=== PATIENT | male | born 1960 | race Caucasian/White ===

== ENCOUNTER → 2018-05-31 | Outpatient (CLI) | payer BC ==
[2014-03-12 04:16] VITALS: BP 163/85
[~2018-05-31] MED LIST: ALLO100T PO; AMLO1TAB95 PO; AMLO5TAB10 PO; ASPI-612 PO; ATOR40TA59 PO; CHOL4POW11 PO; FENO134C PO; GLIM1TAB2 PO; LISI1TAB5 PO; LORA5SOL49 PO; METF10007 PO; TOPI25TA52 PO
--- NOTE | 2018-05-31 16:50 | RAD ---
CT of the abdomen and pelvis without contrast, 05/31/2018: History: Left flank pain Noncontrast scans were obtained utilizing the renal stone protocol. There are single small nonobstructing calculi within both kidneys. There is an additional calcification of the left renal hilum which is arterial. There is minimal bilateral renal cortical scarring. There is no evidence of hydronephrosis. The ureters are of normal caliber. No ureteral calculus is seen. The partially filled urinary bladder is unremarkable. The liver is of lower than normal density in a diffuse pattern compatible with mild hepatic steatosis. Two small subcentimeter low density lesions are seen adjacent to the gallbladder fossa. These are too small to definitively characterize but are probably cysts. The gallbladder is collapsed. No dense gallstones are seen. The pancreas is unremarkable. The spleen is of normal size. There is mild aortic calcific plaquing without evidence of aneurysm. No abdominal or pelvic adenopathy is seen. The bowel loops are not dilated. No free fluid or free air is evident in the abdomen or pelvis. A couple of small sclerotic foci within the L5 and L3 vertebral bodies as well as the right iliac bone are probably bone islands. Blastic metastatic disease is much less likely. IMPRESSION: 1. Single small bilateral nonobstructing intrarenal calculi. 2. No obstructing urinary tract calculus is identified. 3. Hepatic steatosis. PQRS Compliance Statement: One or more of the following individualized dose reduction techniques were utilized for this examination: 1. Automated exposure control 2. Adjustment of the mA and/or kV according to patient size 3. Use of iterative reconstruction technique
== END | disposition home or self-care (01) ==
LOC: CT 15:05
PROVIDERS: ATTEND Nurse Practitioner Gerontology
DX: N20.0 Calculus of kidney (principal)
CPT/HCPCS: 74176

== ENCOUNTER 2018-10-30 17:30 | Inpatient (IN) | payer BC ==
[~2018-10-30] VITALS: Ht 177.8 cm; Wt 100.9 kg
[~2018-10-30 17:30] MED LIST changes: -AMLO5TAB10 PO; -ASPI-612 PO; -ATOR40TA59 PO; -CHOL4POW11 PO; -FENO134C PO; -TOPI25TA52 PO
--- NOTE | 2018-10-30 17:56 | PHYS DOC ---
Past Medical History Past Medical History: Diabetes-Type II, High Cholesterol, Hypertension, Other Additional Past Medical Histor: GOUT (FRED ABDI MD) Past Surgical History: No Surgical History (FRED ABDI MD) Alcohol Use: None Drug Use: None (FRED ABDI MD) Adult General Chief Complaint Chief Complaint: chest pain HPI HPI Patient is a 57 year old male who presents with complaining of chest pain. Patient was sent from his primary care physician office Dr Sultana today because of intermittent episodes of chest pain for 2 months as a heaviness in the substernal and bilateral chest that usually happen once or twice a day with physical activity and associated with shortness of breath and dizziness and headache. Patient rated the pain 10 over 10 during episodes of pain. Patient also complaining of jerking movement of right arm usually at night and his primary care physician was concern for possible CVA. Patient has history of hypertension, dyslipidemia, diabetes mellitus, chewing tobacco, and family history of coronary artery disease and denies coronary artery disease by himself. Patient rated his pain 2 or 3 and states he did not take baby aspirin like as his usual today. (FRED ABDI MD) Review of Systems Review of Systems Constitutional: Denies fever or chills [] Eyes: Denies change in visual acuity, redness, or eye pain [] HENT: Denies nasal congestion or sore throat [] Respiratory: Denies cough, reports shortness of breath [] Cardiovascular: No additional information not addressed in HPI [] GI: Denies abdominal pain, nausea, vomiting, bloody stools or diarrhea [] : Denies dysuria or hematuria [] Musculoskeletal: Denies back pain or joint pain [] Integument: Denies rash or skin lesions [] Neurologic: Denies headache, focal weakness or sensory changes [] Endocrine: Denies polyuria or polydipsia [] All other systems were reviewed and found to be within normal limits, except as documented in this note. (FRED ABDI MD) Current Medications Current Medications Current Medications Medications (Trade) Dose Ordered Sig/Marvin Start Time Stop Time Status Last Admin Dose Admin Aspirin (Children'S Aspirin) 324 mg 1X ONCE 10/30/18 19:30 10/30/18 19:31 DC (YURI BALLARD MD) Allergies Allergies Allergies Coded Allergies Type Severity Reaction Last Updated Verified Opioids - Morphine Analogues Allergy Intermediate VOMITING 10/30/18 No (YURI BALLARD MD) Physical Exam Physical Exam Constitutional: Well developed, well nourished, mild distress, non-toxic appearance. [] HENT: Normocephalic, atraumatic, bilateral external ears normal, oropharynx moist, no oral exudates, nose normal. [] Eyes: PERRLA, EOMI, conjunctiva normal, no discharge. [] Neck: Normal range of motion, no tenderness, supple, no stridor. [] Cardiovascular:Heart rate regular rhythm, no murmur [] Lungs & Thorax: Bilateral breath sounds clear to auscultation [] Abdomen: Bowel sounds normal, soft, no tenderness, no masses, no pulsatile masses. [] Skin: Warm, dry, no erythema, no rash. [] Back: No tenderness, no CVA tenderness. [] Extremities: No tenderness, no cyanosis, no clubbing, ROM intact, no edema. [] Neurologic: Alert and oriented X 3, normal motor function, normal sensory function, no focal deficits noted. [] Psychologic: Affect normal, judgement normal, mood normal. [] (FRED ABDI MD) Current Patient Data Vital Signs Vital Signs Date Time Temp Pulse Resp B/P (MAP) Pulse Ox O2 Delivery O2 Flow Rate FiO2 10/30/18 17:38 98.5 18 185/90 (121) 97 Room Air 98.5 (YURI BALLARD MD) Lab Values Laboratory Tests Test 10/30/18 17:45 10/30/18 17:50 White Blood Count 8.5 x10^3/uL (4.0-11.0) Red Blood Count 4.92 x10^6/uL (4.30-5.70) Hemoglobin 14.4 g/dL (13.0-17.5) Hematocrit 42.3 % (39.0-53.0) Mean Corpuscular Volume 86 fL (79-100) Mean Corpuscular Hemoglobin 29 pg (25-35) Mean Corpuscular Hemoglobin Concent 34 g/dL (31-37) Red Cell Distribution Width 14.3 % (11.5-14.5) Platelet Count 237 x10^3/uL (140-400) Neutrophils (%) (Auto) 51 % (31-73) Lymphocytes (%) (Auto) 37 % (24-48) Monocytes (%) (Auto) 7 % (0-9) Eosinophils (%) (Auto) 4 % (0-3) H Basophils (%) (Auto) 1 % (0-3) Neutrophils # (Auto) 4.3 x10^3uL (1.8-7.7) Lymphocytes # (Auto) 3.1 x10^3/uL (1.0-4.8) Monocytes # (Auto) 0.6 x10^3/uL (0.0-1.1) Eosinophils # (Auto) 0.4 x10^3/uL (0.0-0.7) Basophils # (Auto) 0.1 x10^3/uL (0.0-0.2) Prothrombin Time 12.4 SEC (11.7-14.0) Prothrombin Time INR 1.0 (0.8-1.1) Sodium Level 139 mmol/L (136-145) Potassium Level 4.0 mmol/L (3.5-5.1) Chloride Level 101 mmol/L (98-107) Carbon Dioxide Level 26 mmol/L (21-32) Anion Gap 12 (6-14) Blood Urea Nitrogen 14 mg/dL (8-26) Creatinine 0.8 mg/dL (0.7-1.3) Estimated GFR (Cockcroft-Gault) 100.4 BUN/Creatinine Ratio 18 (6-20) Glucose Level 175 mg/dL (70-99) H Calcium Level 9.7 mg/dL (8.5-10.1) Magnesium Level 1.8 mg/dL (1.8-2.4) Total Bilirubin 0.4 mg/dL (0.2-1.0) Aspartate Amino Transferase (AST) 23 U/L (15-37) Alanine Aminotransferase (ALT) 27 U/L (16-63) Alkaline Phosphatase 64 U/L (46-116) Creatine Kinase 45 U/L (39-308) Troponin I Quantitative < 0.017 ng/mL (0.000-0.055) HG-Tke-W-Type Natriuretic Peptide 5 pg/mL (0-124) Total Protein 7.2 g/dL (6.4-8.2) Albumin 3.9 g/dL (3.4-5.0) Albumin/Globulin Ratio 1.2 (1.0-1.7) Lipase 121 U/L (73-393) Urine Collection Type Unknown Urine Color Yellow Urine Clarity Clear Urine pH 5.5 Urine Specific Holder 1.020 Urine Protein Negative mg/dL (NEG-TRACE) Urine Glucose (UA) Negative mg/dL (NEG) Urine Ketones (Stick) Negative mg/dL (NEG) Urine Blood Negative (NEG) Urine Nitrite Negative (NEG) Urine Bilirubin Negative (NEG) Urine Urobilinogen Dipstick 1.0 mg/dL (0.2 mg/dL) Urine Leukocyte Esterase Small (NEG) Urine RBC Occ /HPF (0-2) Urine WBC 1-4 /HPF (0-4) Urine Squamous Epithelial Cells Few /LPF Urine Bacteria 0 /HPF (0-FEW) Urine Mucus Mod /LPF Laboratory Tests 10/30/18 17:45 Laboratory Tests 10/30/18 17:45 (YURI BALLARD MD) EKG EKG EKG Interpreted by me. EKG at 1739 showed sinus bradycardia at rate of 59, abnormal left axis deviation, poor R-wave progress in inferior leads, no acute ST and T-wave abnormalities. (FRED ABDI MD) EKG Additionally I did note Q waves as well inferiorly (YURI BALLARD MD) Radiology/Procedures Radiology/Procedures [] (FRED ABDI MD) Impressions: Impression: Low-attenuation of the left high frontal white matter is of indeterminate age. Underlying acute infarct as questioned. Low-attenuation of the left internal capsule which likely represent lacunar infarct of indeterminate age also seen. Consider further evaluation with MRI if able and if clinically warranted. PQRS Compliance Statement: One or more of the following individualized dose reduction techniques were utilized for this examination: 1. Automated exposure control 2. Adjustment of the mA and/or kV according to patient size 3. Use of iterative reconstruction technique Electronically signed by: Aurelio Upton MD (10/30/2018 6:30 PM) [facility] DICTATED and SIGNED BY: AURELIO UPTON MD DATE: 10/30/18 183 (YURI BALLARD MD) Course & Med Decision Making Course & Med Decision Making Pertinent Labs and Imaging studies are pending. Evaluation of patient in ER showed 57-year-old male patient sent from primary care physician office because of intermittent episodes of exertional chest pain for 2 months and jerking movement of the right hand. Patient had unremarkable physical exam. Labs and chest x-ray and CT of head is pending. Sign out given to at 1800 for further evaluation and final disposi tion. Discussed current findings and plan with patient and family, who acknowledge understanding and agreement. (FRED ABDI MD) Course & Med Decision Making Chest x-ray my interpretation negative acute. CT scan was noted above troponin negative patient does appear to have no obvious focal neuro deficit there's no drift strength is actually pretty good on my examination. I spoke with Dr. Sultana who has seen this patient in the emergency room at this point time we'll plan to admit for cardiology and neurology consultation. I ordered some aspirin I ordered a swallow screen as well. She is not an acute stroke the patient has had right arm symptoms for the last 3 weeks at least. (YURI BALLARD MD) Dragon Disclaimer Dragon Disclaimer This electronic medical record was generated, in whole or in part, using a voice recognition dictation system. (FRED ABDI MD) Departure Departure Impression: Primary Impression: Chest pain Additional Impression: CVA (cerebral vascular accident) Disposition: ADMITTED INPATIENT Admitting Physician: Tha Sultana (YURI BALLARD MD) Condition: STABLE Referrals: THA SULTANA MD (PCP) Problem Qualifiers FRED ABDI MD Oct 30, 2018 17:56 YURI BALLARD MD Oct 30, 2018 19:55
[2018-10-30 17:57] LABS: BASO # 0.1 x10^3/uL (0.0-0.2); BASO % 1 % (0-3); EOS # 0.4 x10^3/uL (0.0-0.7); EOS % 4 % (0-3); HEMATOCRIT 42.3 % (39.0-53.0); HEMOGLOBIN 14.4 g/dL (13.0-17.5); LYMPH # 3.1 x10^3/uL (1.0-4.8); LYMPH % 37 % (24-48); MEAN CORPUSCULAR HEMOGLOBIN 29 pg (25-35); MEAN CORPUSCULAR HGB CONC 34 g/dL (31-37); MEAN CORPUSCULAR VOLUME 86 fL (79-100); MONO # 0.6 x10^3/uL (0.0-1.1); MONO % 7 % (0-9); NEUT # 4.3 x10^3uL (1.8-7.7); NEUT % 51 % (31-73); PLATELET COUNT 237 x10^3/uL (140-400); RED BLOOD COUNT 4.92 x10^6/uL (4.30-5.70); RED CELL DISTRIBUTION WIDTH 14.3 % (11.5-14.5); WHITE BLOOD COUNT 8.5 x10^3/uL (4.0-11.0)
[2018-10-30 18:07] LABS: PROTHROMBIN TIME PATIENT 12.4 SEC (11.7-14.0)
[2018-10-30 18:09] LABS: BILIRUBIN,URINE NEGATIVE (NEG); CLARITY,URINE CLEAR; COLOR,URINE YELLOW; NITRITE,URINE NEGATIVE (NEG); PH,URINE 5.5; PROTEIN,URINE NEGATIVE (NEG-TRACE)
[2018-10-30 18:11] LABS: CALCIUM 9.7 mg/dL (8.5-10.1); CREATININE 0.8 mg/dL (0.7-1.3); GFR 100.4
[2018-10-30 18:13] LABS: BACTERIA,URINE 0 /HPF (0-FEW); RBC,URINE OCC /HPF (0-2); SQUAMOUS EPITHELIAL CELL,UR FEW /LPF
[2018-10-30] MEDS ORDERED: ASPIRIN CHEWABLE 81 MG TABLET. PO ONE ×2 (18:15→19:30)
[2018-10-30 18:16] LABS: ALBUMIN 3.9 g/dL (3.4-5.0); ALBUMIN/GLOBULIN RATIO 1.2 (1.0-1.7); MAGNESIUM 1.8 mg/dL (1.8-2.4); TOTAL BILIRUBIN 0.4 mg/dL (0.2-1.0); TOTAL PROTEIN 7.2 g/dL (6.4-8.2)
--- NOTE | 2018-10-30 18:33 | RAD ---
Examination: CT HEAD WO CONTRAST History: Abnormal left arm movements Comparison/Correlation: None Findings: Axial images of the head were obtained without contrast. Ventricles are normal size. No intracranial hemorrhage, midline shift, or mass effect. Low-attenuation is evident involving the left internal capsule at the genu and posterior limb. This may represent chronic infarct involvement. Subtle low-attenuation of the left high frontal white matter is noted. Globes and optic nerves are unremarkable. Bony structures are intact. Impression: Low-attenuation of the left high frontal white matter is of indeterminate age. Underlying acute infarct as questioned. Low-attenuation of the left internal capsule which likely represent lacunar infarct of indeterminate age also seen. Consider further evaluation with MRI if able and if clinically warranted. PQRS Compliance Statement: One or more of the following individualized dose reduction techniques were utilized for this examination: 1. Automated exposure control 2. Adjustment of the mA and/or kV according to patient size 3. Use of iterative reconstruction technique Electronically signed by: Aurelio Beasley MD (10/30/2018 6:30 PM) [facility]
[2018-10-30 22:00] VITALS: BP 149/81
--- NOTE | 2018-10-30 22:00 | NUR ---
Admit from ED via gurney. A/O x 4. Ambulated from [facility] in [place] to bed in room independently with steady gait. NIH score done at bedside with this RN and Shon Osborn ED Med Tech resulting in score of 0. Patient moves all extremities with equal strength. Patient reports involuntary movement in right arm at times anabell when he is fatigued. Orientated to POC to include lab draws and consults. Orientated to room and call light. Verbalized understanding. Resting in bed. Call light at hand.
--- NOTE | 2018-10-30 22:37 | HP ---
ADMIT DATE: 10/30/2018 CHIEF COMPLAINT: Right arm movement disorder. HISTORY OF PRESENT ILLNESS AND HOSPITAL COURSE: This patient is a 57-year-old male who states that for the last several weeks, he has been having difficulty controlling his right arm. He will have intermittent random uncontrolled movements. The patient also relates episodes of shortness of breath with activity, diaphoresis and extreme weakness. Due to these symptoms, EKG was done in the office showing evidence of new Q waves. At this point, it is felt that patient should be evaluated in the Emergency Room for possible acute coronary syndrome and CVA. During ER evaluation, the patient was found to have new evidence of cerebrovascular accidents in the left frontal area and left internal capsule. Left internal capsule reveals CVA of indeterminate age. New CVA in the frontal area was also noted. Due to the constellation of symptoms, the patient was admitted for Cardiology consultation and Neurology evaluation. PAST MEDICAL HISTORY: Significant for: 1. Type 2 diabetes. 2. Hypertension. 3. Hyperlipidemia. 4. Obesity. 5. Gouty arthritis. 6. History of ureteral stones. 7. Obstructive sleep apnea. 8. IBS. PAST SURGICAL HISTORY: Significant for tonsillectomy, appendectomy, renal stone removal. FAMILY HISTORY: Father is with complications of diabetes, hypertension. His brother who is with throat cancer, but also had early onset coronary artery disease with at least 4 different MIs. SOCIAL HISTORY: The patient is a former smoker, but does not use alcohol. He quit smoking approximately 2 years ago and did smoke up to a pack per day for over 20 years. The patient lives with his family and . 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 ALLERGIES: The patient has no known drug allergies. REVIEW OF SYSTEMS: Positive for diaphoresis, dyspnea on exertion, weakness and fatigue, abnormal right arm movements intermittently. No recent weight loss, weight gain, night sweats, cough or congestion. PHYSICAL EXAMINATION: GENERAL: This is a well-nourished, well-developed, alert and oriented male, in no apparent distress. HEENT: Benign. NECK: Supple. CARDIAC: Regular rate and rhythm. LUNGS: Clear. ABDOMEN: Soft, nontender, without masses. EXTREMITIES: 2+ pulses without edema with 2+ reflexes. No unilateral findings. ASSESSMENT: 1. Acute onset cerebrovascular accident. 2. Movement disorder, right arm. 3. Suspected coronary artery disease. 4. Type 2 diabetes. PLAN: To proceed with Neurology and Cardiology consultation. MRI in the morning and control chronic medical issues. MILO VILLALTA MD DR: JIMI/bradford JOB#: [id number] / [id number]
[2018-10-30 23:00] VITALS: BP 155/77
[2018-10-30] MEDS: ATORVASTATIN CALCIUM 40 MG TABLET. PO SCH (23:19)
[2018-10-30] MEDS: ENOXAPARIN 40 MG/0.4 ML SYRINGE. SQ SCH (23:20)
[2018-10-30] MEDS: INSULIN LISPRO 300 UNITS/3 ML INSULN.PEN. SQ SCH (23:27)
--- NOTE | 2018-10-31 01:54 | RAD ---
Chest PA and lateral: Reason for examination: Chest pain. The heart size is normal. Mediastinum is unremarkable. Lung kemp are clear. No acute bony abnormalities are seen. Impression: No acute cardiopulmonary disease. Electronically signed by: Marguerite Knowles MD (10/31/2018 1:51 AM) [facility] [place]
[2018-10-31] MEDS ORDERED: AMLO5TAB10 PO (02:06)
[2018-10-31 02:59] LABS: BASO % 1 % (0-3); EOS # 0.4 x10^3/uL (0.0-0.7); EOS % 5 % (0-3); HEMATOCRIT 39.1 % (39.0-53.0); HEMOGLOBIN 13.2 g/dL (13.0-17.5); LYMPH # 2.5 x10^3/uL (1.0-4.8); LYMPH % 37 % (24-48); MEAN CORPUSCULAR HEMOGLOBIN 29 pg (25-35); MEAN CORPUSCULAR HGB CONC 34 g/dL (31-37); MEAN CORPUSCULAR VOLUME 87 fL (79-100); MONO # 0.5 x10^3/uL (0.0-1.1); MONO % 7 % (0-9); NEUT # 3.4 x10^3uL (1.8-7.7); NEUT % 50 % (31-73); PLATELET COUNT 226 x10^3/uL (140-400); RED BLOOD COUNT 4.52 x10^6/uL (4.30-5.70); RED CELL DISTRIBUTION WIDTH 14.8 % (11.5-14.5); WHITE BLOOD COUNT 6.8 x10^3/uL (4.0-11.0)
[2018-10-31 03:00] VITALS: BP 132/79
[2018-10-31 03:01] LABS: CALCIUM 8.8 mg/dL (8.5-10.1); CREATININE 0.8 mg/dL (0.7-1.3)
--- NOTE | 2018-10-31 06:25 | EKG ---
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
[2018-10-31 07:00] VITALS: BP 151/83
[2018-10-31] MEDS: INSULIN LISPRO 300 UNITS/3 ML INSULN.PEN. SQ SCH ×4 (07:30→21:01)
[2018-10-31] MEDS: ACETAMINOPHEN 325 MG TABLET. PO PRN (07:48)
[2018-10-31] MEDS: amLODIPine BESYLATE 5 MG TABLET PO SCH (09:49)
[2018-10-31] MEDS: LISINOPRIL 20 MG TABLET PO SCH (09:49)
[2018-10-31] MEDS: ASPIRIN ENTERIC COATED 81 MG TABLET.DR. PO SCH (09:50)
[2018-10-31] MEDS: ALLOPURINOL 100 MG TABLET. PO SCH (09:50)
[2018-10-31] MEDS: hydroCHLOROthiazide 25 MG TABLET PO SCH (09:50)
--- NOTE | 2018-10-31 10:23 | CARD ---
MR#: [id number] Date of Study: 10/31/2018 Ordering Physician: MILO VILLALTA, Referring Physician: MILO VILLALTA Tech: Karina Mayorga RDCS APPROVED REPORT EXAM: Two-dimensional and M-mode echocardiogram with Doppler and color Doppler. Other Information Quality : Good INDICATION Chest Pain 2D DIMENSIONS RVDd3.1 (2.9-3.5cm)Left Atrium(2D)3.7 (1.6-4.0cm) IVSd0.9 (0.7-1.1cm)Aortic Root(2D)3.0 (2.0-3.7cm) LVDd4.9 (3.9-5.9cm)LVOT Diameter2.3 (1.8-2.4cm) PWd0.9 (0.7-1.1cm)LVDs3.1 (2.5-4.0cm) FS (%) 36.8 %SV76.7 ml LVEF(%)60.0 (>50%) Aortic Valve AoV Peak Ronald.137.5cm/sAoV VTI27.0cm AO Peak GR.7.6mmHgLVOT Peak Ronald.102.0cm/s AO Mean GR.4mmHgAVA (VMAX)3.09cm2 TERRENCE (VTI)3.70cm2 Mitral Valve MV E Oztltjdq610.1cm/sMV DECEL OOHA725ns MV A Jhhikrkh125.4cm/sE/A Ratio0.9 Pulmonary Vein S1 Ittgajtx18.0cm/sD2 Mifkmdig00.7cm/s LEFT VENTRICLE The left ventricle is normal size. There is normal left ventricular wall thickness. The left ventricu lar systolic function is normal and the ejection fraction is within normal range. The Ejection Fracti on is 55-60%. There is normal LV segmental wall motion. Transmitral Doppler flow pattern is Grade I-a bnormal relaxation pattern. RIGHT VENTRICLE The right ventricle is normal size. The right ventricular systolic function is normal. ATRIA The left atrium size is normal. The right atrium size is normal. The interatrial septum is intact wit h no evidence for an atrial septal defect or patent foramen ovale as noted on 2-D or Doppler imaging. AORTIC VALVE The aortic valve is normal in structure and function. Doppler and Color Flow revealed no significant aortic regurgitation. There is no significant aortic valvular stenosis. MITRAL VALVE The mitral valve is normal in structure and function. There is no evidence of mitral valve prolapse. There is no mitral valve stenosis. Doppler and Color-flow revealed trace mitral regurgitation. TRICUSPID VALVE The tricuspid valve is normal in structure and function. Doppler and Color Flow revealed no tricuspid valve regurgitation noted. There is no tricuspid valve stenosis. PULMONIC VALVE The pulmonic valve is not well visualized. Doppler and Color Flow revealed no pulmonic valvular regur gitation. There is no pulmonic valvular stenosis. GREAT VESSELS The aortic root is normal in size. The ascending aorta is normal in size. The IVC is normal in size a nd collapses >50% with inspiration. PERICARDIAL EFFUSION There is no evidence of significant pericardial effusion. Critical Notification Critical Value: No <Conclusion> The left ventricular systolic function is normal and the ejection fraction is within normal range. Th e Ejection Fraction is 55-60%. There is normal LV segmental wall motion. Signed by : Seven Sevilla, Electronically Approved : 10/31/2018 10:22:29
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
[2018-10-31 10:51] LABS: CHOLESTEROL 173 mg/dL (0-200); HDLC 30 mg/dL (40-60); TRIGLYCERIDES 555 mg/dL (0-150); VLDLC 111 mg/dL (0-40)
[2018-10-31 10:53] LABS: CHOLESTEROL/HDL RATIO 5.8
[2018-10-31 11:00] VITALS: BP 164/91
--- NOTE | 2018-10-31 12:00 | NUR ---
[facility] bedside swallow completed, patient swallowing intact. Patient reports cough that started yesterday no correlation with eating or drinking. Dr. Sultana notified, patient cleared to eat.
--- NOTE | 2018-10-31 12:29 | NUR ---
SS following for discharge planning. SS reviewed pt chart. Pt is from home and is currently on room air. No discharge needs noted at this time. SS will continue to follow for discharge planning.
[2018-10-31] MEDS ORDERED: GADOTERATE 7.5 MMOL/15ML VIAL. IVP ONE (14:00)
--- NOTE | 2018-10-31 14:55 | RAD ---
MRI of the Brain without and with Contrast 10/31/2018 Clinical History: Right sided weakness. Technique: Unenhanced T1-weighted sagittal and axial and FLAIR, T2-weighted, gradient echo and diffusion-weighted axial images of the brain were obtained. After the intravenous administration of 20 cc of Dotarem, enhanced T1-weighted axial and coronal images of the brain were obtained. Findings: Comparison is made to the patient's CT scan dated 08/24/2013. There is mild generalized parenchymal atrophy. Patchy and small scattered areas of abnormally increased signal intensity are seen within the periventricular and subcortical white matter of both cerebral hemispheres along with the nick on the FLAIR and T2-weighted images consistent most likely with areas of mild small vessel ischemic disease. No acute parenchymal abnormality is seen. No abnormal area of contrast enhancement is noted. No extra-axial fluid collection is seen. There is no MRI evidence of acute ischemia/infarction. Mild mucosal thickening is seen scattered throughout the paranasal sinuses. There are small bilateral mastoid effusions. Normal flow voids are seen within the major vascular structures surrounding the brain parenchyma. Impression: No acute parenchymal abnormality is seen. Electronically signed by: Allen Skinner MD (10/31/2018 2:51 PM) [id number]
[2018-10-31 15:00] VITALS: BP 149/79
[2018-10-31 15:12] LABS: BARBITURATES NEG (NEG); BENZODIAZEPINES NEG (NEG); CANNABINOIDS NEG (NEG); COCAINE NEG (NEG); METHADONE NEG (NEG); OPIATES NEG (NEG); PHENCYCLIDINE NEG (NEG)
[2018-10-31 15:20] LABS: AMPHETAMINE/METHAMPHETAMINE NEG (NEG)
--- NOTE | 2018-10-31 17:04 | PDOC ---
PROGRESS NOTES Subjective Subjective Patient without new complaints. Patient feeling better. Patient seen prior to MRI. MRI is now back and does not confirm cerebrovascular accident changes seen on CT. Neurology evaluation pending. Objective Objective Vital Signs Date Time Temp Pulse Resp B/P (MAP) Pulse Ox O2 Delivery O2 Flow Rate FiO2 10/31/18 11:00 97.5 46 18 164/91 (115) 97 Room Air 97.5 Intake and Output 10/31/18 07:00 Intake Total 900 ml Output Total 950 ml Balance -50 ml Intake Oral 900 ml Output Urine Total 950 ml Physical Exam Abdomen: Normal bowel sounds Heart: Regular rate Extremities: No clubbing General: Alert Lungs: Clear to auscultation Assessment Assessment Problems Medical Problems: (1) Chest pain Status: Acute 1. Weakness and diaphoresis. 2. Movement disorder, right arm. 3. Suspected coronary artery disease. 4. Type 2 diabetes. Plan Plan of Care Continue neurology evaluation. If patient in fact did not have a new CVA will proceed with MPI for symptoms of diaphoresis fatigue and shortness of breath. Comment Review of Relevant I have reviewed the following items jade (where applicable) has been applied. Labs Laboratory Tests Test 10/30/18 17:45 10/30/18 17:50 10/30/18 22:10 10/30/18 23:08 White Blood Count 8.5 x10^3/uL (4.0-11.0) Red Blood Count 4.92 x10^6/uL (4.30-5.70) Hemoglobin 14.4 g/dL (13.0-17.5) Hematocrit 42.3 % (39.0-53.0) Mean Corpuscular Volume 86 fL (79-100) Mean Corpuscular Hemoglobin 29 pg (25-35) Mean Corpuscular Hemoglobin Concent 34 g/dL (31-37) Red Cell Distribution Width 14.3 % (11.5-14.5) Platelet Count 237 x10^3/uL (140-400) Neutrophils (%) (Auto) 51 % (31-73) Lymphocytes (%) (Auto) 37 % (24-48) Monocytes (%) (Auto) 7 % (0-9) Eosinophils (%) (Auto) 4 % (0-3) Basophils (%) (Auto) 1 % (0-3) Neutrophils # (Auto) 4.3 x10^3uL (1.8-7.7) Lymphocytes # (Auto) 3.1 x10^3/uL (1.0-4.8) Monocytes # (Auto) 0.6 x10^3/uL (0.0-1.1) Eosinophils # (Auto) 0.4 x10^3/uL (0.0-0.7) Basophils # (Auto) 0.1 x10^3/uL (0.0-0.2) Prothrombin Time 12.4 SEC (11.7-14.0) Prothromb Time International Ratio 1.0 (0.8-1.1) Sodium Level 139 mmol/L (136-145) Potassium Level 4.0 mmol/L (3.5-5.1) Chloride Level 101 mmol/L (98-107) Carbon Dioxide Level 26 mmol/L (21-32) Anion Gap 12 (6-14) Blood Urea Nitrogen 14 mg/dL (8-26) Creatinine 0.8 mg/dL (0.7-1.3) Estimated GFR (Cockcroft-Gault) 100.4 BUN/Creatinine Ratio 18 (6-20) Glucose Level 175 mg/dL (70-99) Calcium Level 9.7 mg/dL (8.5-10.1) Magnesium Level 1.8 mg/dL (1.8-2.4) Total Bilirubin 0.4 mg/dL (0.2-1.0) Aspartate Amino Transf (AST/SGOT) 23 U/L (15-37) Alanine Aminotransferase (ALT/SGPT) 27 U/L (16-63) Alkaline Phosphatase 64 U/L (46-116) Creatine Kinase 45 U/L (39-308) Troponin I Quantitative < 0.017 ng/mL (0.000-0.055) < 0.017 ng/mL (0.000-0.055) BY-Fgb-N-Type Natriuretic Peptide 5 pg/mL (0-124) Total Protein 7.2 g/dL (6.4-8.2) Albumin 3.9 g/dL (3.4-5.0) Albumin/Globulin Ratio 1.2 (1.0-1.7) Lipase 121 U/L (73-393) Thyroid Stimulating Hormone (TSH) 1.065 uIU/mL (0.358-3.74) Urine Collection Type Unknown Urine Color Yellow Urine Clarity Clear Urine pH 5.5 Urine Specific [place] 1.020 Urine Protein Negative mg/dL (NEG-TRACE) Urine Glucose (UA) Negative mg/dL (NEG) Urine Ketones (Stick) Negative mg/dL (NEG) Urine Blood Negative (NEG) Urine Nitrite Negative (NEG) Urine Bilirubin Negative (NEG) Urine Urobilinogen Dipstick 1.0 mg/dL (0.2 mg/dL) Urine Leukocyte Esterase Small (NEG) Urine RBC Occ /HPF (0-2) Urine WBC 1-4 /HPF (0-4) Urine Squamous Epithelial Cells Few /LPF Urine Bacteria 0 /HPF (0-FEW) Urine Mucus Mod /LPF Glucose (Fingerstick) 207 mg/dL (70-99) Test 10/31/18 01:20 10/31/18 03:00 10/31/18 08:35 10/31/18 11:47 Troponin I Quantitative < 0.017 ng/mL (0.000-0.055) White Blood Count 6.8 x10^3/uL (4.0-11.0) Red Blood Count 4.52 x10^6/uL (4.30-5.70) Hemoglobin 13.2 g/dL (13.0-17.5) Hematocrit 39.1 % (39.0-53.0) Mean Corpuscular Volume 87 fL (79-100) Mean Corpuscular Hemoglobin 29 pg (25-35) Mean Corpuscular Hemoglobin Concent 34 g/dL (31-37) Red Cell Distribution Width 14.8 % (11.5-14.5) Platelet Count 226 x10^3/uL (140-400) Neutrophils (%) (Auto) 50 % (31-73) Lymphocytes (%) (Auto) 37 % (24-48) Monocytes (%) (Auto) 7 % (0-9) Eosinophils (%) (Auto) 5 % (0-3) Basophils (%) (Auto) 1 % (0-3) Neutrophils # (Auto) 3.4 x10^3uL (1.8-7.7) Lymphocytes # (Auto) 2.5 x10^3/uL (1.0-4.8) Monocytes # (Auto) 0.5 x10^3/uL (0.0-1.1) Eosinophils # (Auto) 0.4 x10^3/uL (0.0-0.7) Basophils # (Auto) 0.0 x10^3/uL (0.0-0.2) Sodium Level 139 mmol/L (136-145) Potassium Level 4.0 mmol/L (3.5-5.1) Chloride Level 102 mmol/L (98-107) Carbon Dioxide Level 26 mmol/L (21-32) Anion Gap 11 (6-14) Blood Urea Nitrogen 12 mg/dL (8-26) Creatinine 0.8 mg/dL (0.7-1.3) Estimated GFR (Cockcroft-Gault) 100.0 Glucose Level 245 mg/dL (70-99) Calcium Level 8.8 mg/dL (8.5-10.1) Triglycerides Level 555 mg/dL (0-150) Cholesterol Level 173 mg/dL (0-200) LDL Cholesterol, Calculated mg/dL (0-100) VLDL Cholesterol, Calculated 111 mg/dL (0-40) Non-HDL Cholesterol Calculated 143 mg/dL (0-129) HDL Cholesterol 30 mg/dL (40-60) Cholesterol/HDL Ratio 5.8 Glucose (Fingerstick) 131 mg/dL (70-99) 250 mg/dL (70-99) Test 10/31/18 15:00 Urine Opiates Screen Neg (NEG) Urine Methadone Screen Neg (NEG) Urine Barbiturates Neg (NEG) Urine Phencyclidine Screen Neg (NEG) Urine Amphetamine/Methamphetamine Neg (NEG) Urine Benzodiazepines Screen Neg (NEG) Urine Cocaine Screen Neg (NEG) Urine Cannabinoids Screen Neg (NEG) Urine Ethyl Alcohol Neg (NEG) Laboratory Tests Test 10/30/18 17:45 10/30/18 17:50 10/30/18 22:10 10/30/18 23:08 White Blood Count 8.5 x10^3/uL (4.0-11.0) Red Blood Count 4.92 x10^6/uL (4.30-5.70) Hemoglobin 14.4 g/dL (13.0-17.5) Hematocrit 42.3 % (39.0-53.0) Mean Corpuscular Volume 86 fL (79-100) Mean Corpuscular Hemoglobin 29 pg (25-35) Mean Corpuscular Hemoglobin Concent 34 g/dL (31-37) Red Cell Distribution Width 14.3 % (11.5-14.5) Platelet Count 237 x10^3/uL (140-400) Neutrophils (%) (Auto) 51 % (31-73) Lymphocytes (%) (Auto) 37 % (24-48) Monocytes (%) (Auto) 7 % (0-9) Eosinophils (%) (Auto) 4 % (0-3) Basophils (%) (Auto) 1 % (0-3) Neutrophils # (Auto) 4.3 x10^3uL (1.8-7.7) Lymphocytes # (Auto) 3.1 x10^3/uL (1.0-4.8) Monocytes # (Auto) 0.6 x10^3/uL (0.0-1.1) Eosinophils # (Auto) 0.4 x10^3/uL (0.0-0.7) Basophils # (Auto) 0.1 x10^3/uL (0.0-0.2) Prothrombin Time 12.4 SEC (11.7-14.0) Prothromb Time International Ratio 1.0 (0.8-1.1) Sodium Level 139 mmol/L (136-145) Potassium Level 4.0 mmol/L (3.5-5.1) Chloride Level 101 mmol/L (98-107) Carbon Dioxide Level 26 mmol/L (21-32) Anion Gap 12 (6-14) Blood Urea Nitrogen 14 mg/dL (8-26) Creatinine 0.8 mg/dL (0.7-1.3) Estimated GFR (Cockcroft-Gault) 100.4 BUN/Creatinine Ratio 18 (6-20) Glucose Level 175 mg/dL (70-99) Calcium Level 9.7 mg/dL (8.5-10.1) Magnesium Level 1.8 mg/dL (1.8-2.4) Total Bilirubin 0.4 mg/dL (0.2-1.0) Aspartate Amino Transf (AST/SGOT) 23 U/L (15-37) Alanine Aminotransferase (ALT/SGPT) 27 U/L (16-63) Alkaline Phosphatase 64 U/L (46-116) Creatine Kinase 45 U/L (39-308) Troponin I Quantitative < 0.017 ng/mL (0.000-0.055) < 0.017 ng/mL (0.000-0.055) ST-Zil-E-Type Natriuretic Peptide 5 pg/mL (0-124) Total Protein 7.2 g/dL (6.4-8.2) Albumin 3.9 g/dL (3.4-5.0) Albumin/Globulin Ratio 1.2 (1.0-1.7) Lipase 121 U/L (73-393) Thyroid Stimulating Hormone (TSH) 1.065 uIU/mL (0.358-3.74) Urine Collection Type Unknown Urine Color Yellow Urine Clarity Clear Urine pH 5.5 Urine Specific [place] 1.020 Urine Protein Negative mg/dL (NEG-TRACE) Urine Glucose (UA) Negative mg/dL (NEG) Urine Ketones (Stick) Negative mg/dL (NEG) Urine Blood Negative (NEG) Urine Nitrite Negative (NEG) Urine Bilirubin Negative (NEG) Urine Urobilinogen Dipstick 1.0 mg/dL (0.2 mg/dL) Urine Leukocyte Esterase Small (NEG) Urine RBC Occ /HPF (0-2) Urine WBC 1-4 /HPF (0-4) Urine Squamous Epithelial Cells Few /LPF Urine Bacteria 0 /HPF (0-FEW) Urine Mucus Mod /LPF Glucose (Fingerstick) 207 mg/dL (70-99) Test 10/31/18 01:20 10/31/18 03:00 10/31/18 08:35 10/31/18 11:47 Troponin I Quantitative < 0.017 ng/mL (0.000-0.055) White Blood Count 6.8 x10^3/uL (4.0-11.0) Red Blood Count 4.52 x10^6/uL (4.30-5.70) Hemoglobin 13.2 g/dL (13.0-17.5) Hematocrit 39.1 % (39.0-53.0) Mean Corpuscular Volume 87 fL (79-100) Mean Corpuscular Hemoglobin 29 pg (25-35) Mean Corpuscular Hemoglobin Concent 34 g/dL (31-37) Red Cell Distribution Width 14.8 % (11.5-14.5) Platelet Count 226 x10^3/uL (140-400) Neutrophils (%) (Auto) 50 % (31-73) Lymphocytes (%) (Auto) 37 % (24-48) Monocytes (%) (Auto) 7 % (0-9) Eosinophils (%) (Auto) 5 % (0-3) Basophils (%) (Auto) 1 % (0-3) Neutrophils # (Auto) 3.4 x10^3uL (1.8-7.7) Lymphocytes # (Auto) 2.5 x10^3/uL (1.0-4.8) Monocytes # (Auto) 0.5 x10^3/uL (0.0-1.1) Eosinophils # (Auto) 0.4 x10^3/uL (0.0-0.7) Basophils # (Auto) 0.0 x10^3/uL (0.0-0.2) Sodium Level 139 mmol/L (136-145) Potassium Level 4.0 mmol/L (3.5-5.1) Chloride Level 102 mmol/L (98-107) Carbon Dioxide Level 26 mmol/L (21-32) Anion Gap 11 (6-14) Blood Urea Nitrogen 12 mg/dL (8-26) Creatinine 0.8 mg/dL (0.7-1.3) Estimated GFR (Cockcroft-Gault) 100.0 Glucose Level 245 mg/dL (70-99) Calcium Level 8.8 mg/dL (8.5-10.1) Triglycerides Level 555 mg/dL (0-150) Cholesterol Level 173 mg/dL (0-200) LDL Cholesterol, Calculated mg/dL (0-100) VLDL Cholesterol, Calculated 111 mg/dL (0-40) Non-HDL Cholesterol Calculated 143 mg/dL (0-129) HDL Cholesterol 30 mg/dL (40-60) Cholesterol/HDL Ratio 5.8 Glucose (Fingerstick) 131 mg/dL (70-99) 250 mg/dL (70-99) Test 10/31/18 15:00 Urine Opiates Screen Neg (NEG) Urine Methadone Screen Neg (NEG) Urine Barbiturates Neg (NEG) Urine Phencyclidine Screen Neg (NEG) Urine Amphetamine/Methamphetamine Neg (NEG) Urine Benzodiazepines Screen Neg (NEG) Urine Cocaine Screen Neg (NEG) Urine Cannabinoids Screen Neg (NEG) Urine Ethyl Alcohol Neg (NEG) Medications Current Medications Aspirin (Children'S Aspirin) 324 mg 1X ONCE PO Last administered on 10/30/18 18:07; Start 10/30/18 at 18:15; Stop 10/30/18 at 18:16; Status DC Aspirin (Children'S Aspirin) 324 mg 1X ONCE PO ; Start 10/30/18 at 19:30; Stop 10/30/18 at 19:31; Status DC Enoxaparin Sodium (Lovenox 40mg Syringe) 40 mg Q24H SQ Last administered on 10/30/18 23:20; Start 10/30/18 at 21:30 Amlodipine Besylate (Norvasc) 5 mg DAILY PO Last administered on 10/31/18 09:49; Start 10/31/18 at 09:00 Lisinopril (Prinivil) 20 mg DAILY PO Last administered on 10/31/18 09:49; Start 10/31/18 at 09:00 Hydrochlorothiazide (Hydrodiuril) 25 mg DAILY PO Last administered on 10/31/18 09:50; Start 10/31/18 at 09:00 Insulin Human Lispro (HumaLOG) 0-12 UNITS QIDACHS SQ Last administered on 10/31/18 12:44; Start 10/30/18 at 21:45 Aspirin (Ecotrin) 81 mg DAILYWBKFT PO Last administered on 10/31/18 09:50; Start 10/31/18 at 08:00 Atorvastatin Calcium (Lipitor) 40 mg QHS PO Last administered on 10/30/18 23:19; Start 10/30/18 at 21:45 Allopurinol (Zyloprim) 100 mg DAILY PO Last administered on 10/31/18 09:50; Start 10/31/18 at 09:00 Acetaminophen (Tylenol) 650 mg PRN Q4HRS PRN PO PAIN Last administered on 10/31/18 07:48; Start 10/31/18 at 07:45 Allopurinol (Zyloprim) 100 mg HS PO ; Start 10/31/18 at 21:00; Status UNV Amlodipine Besylate (Norvasc) 5 mg DAILY PO ; Start 11/01/18 at 09:00; Status UNV Gadoterate Meglumine (Dotarem) 20.2 ml 1X ONCE IVP Last administered on 10/31/18at 14:14; Start 10/31/18 at 14:00; Stop 10/31/18 at 14:01; Status DC Active Scripts Active Reported Amlodipine Besylate 5 Mg Tablet 5 Mg PO DAILY Allopurinol 100 Mg Tablet 100 Mg PO HS Metformin Hcl 1,000 Mg Tablet 1 Tab PO BID Glimepiride 1 Mg Tablet 1 Tab PO DAILY Lisinopril-Hctz 20-12.5 Mg Tab (Lisinopril/Hydrochlorothiazide) 1 Each Tablet 1 Tab PO DAILY Vitals/I & O Vital Sign - Last 24 Hours 10/30/18 10/30/18 10/30/18 10/30/18 17:38 18:53 19:53 20:23 Temp 98.5 98.5 Pulse 53 50 50 Resp 18 18 18 18 B/P (MAP) 185/90 (121) 133/68 (89) 154/82 (106) 134/82 (99) Pulse Ox 97 98 97 96 O2 Delivery Room Air Room Air Room Air Room Air 10/30/18 10/30/18 10/30/18 10/31/18 22:00 22:00 23:00 03:00 Temp 98.2 97.6 97.4 98.2 97.6 97.4 Pulse 54 66 53 Resp 18 18 16 B/P (MAP) 149/81 (103) 155/77 (103) 132/79 (96) Pulse Ox 97 98 99 O2 Delivery Room Air Room Air Room Air Room Air 10/31/18 10/31/18 10/31/18 10/31/18 07:00 08:00 09:49 09:49 Temp 97.6 97.6 Pulse 52 52 52 Resp 18 B/P (MAP) 151/83 (105) 151/83 151/83 Pulse Ox 97 O2 Delivery Room Air Room Air 10/31/18 11:00 Temp 97.5 97.5 Pulse 46 Resp 18 B/P (MAP) 164/91 (115) Pulse Ox 97 O2 Delivery Room Air Intake and Output 10/30/18 10/30/18 10/31/18 15:00 23:00 07:00 Intake Total 900 ml Output Total 950 ml Balance -50 ml MILO VILLALTA MD Oct 31, 2018 17:04
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
[2018-10-31 19:29] VITALS: BP 164/80
[2018-10-31] MEDS: ATORVASTATIN CALCIUM 40 MG TABLET. PO SCH (20:59)
[2018-10-31] MEDS: ENOXAPARIN 40 MG/0.4 ML SYRINGE. SQ SCH (20:59)
[2018-10-31] MEDS ORDERED: ALLOPURINOL 100 MG TABLET. PO SCH (21:00)
[2018-10-31 23:00] VITALS: BP 139/65
[2018-11-01 02:17] VITALS: BP 141/82
[2018-11-01 07:00] VITALS: BP 153/81
[2018-11-01] MEDS: ACETAMINOPHEN 325 MG TABLET. PO PRN (07:41)
[2018-11-01] MEDS: INSULIN LISPRO 300 UNITS/3 ML INSULN.PEN. SQ SCH ×2 (08:19→12:23)
[2018-11-01] MEDS: ASPIRIN ENTERIC COATED 81 MG TABLET.DR. PO SCH (08:57)
[2018-11-01] MEDS: hydroCHLOROthiazide 25 MG TABLET PO SCH (08:58)
[2018-11-01] MEDS: LISINOPRIL 20 MG TABLET PO SCH (08:58)
[2018-11-01] MEDS: ALLOPURINOL 100 MG TABLET. PO SCH (08:58)
[2018-11-01] MEDS: amLODIPine BESYLATE 5 MG TABLET PO SCH (08:58)
[2018-11-01] MEDS ORDERED: amLODIPine BESYLATE 5 MG TABLET PO SCH (09:00)
[2018-11-01] MEDS ORDERED: TOPIRAMATE 25 MG TABLET. PO SCH (10:00)
[2018-11-01 11:00] VITALS: BP 174/82
[2018-11-01 11:28] VITALS: BP 132/75
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
[2018-11-01] MEDS ORDERED: FENOFIBRATE 54 MG TABLET. PO SCH (13:00)
[2018-11-01] MEDS ORDERED: FENO134C PO (13:01)
[2018-11-01] MEDS ORDERED: ASPI-612 PO (13:01)
[2018-11-01] MEDS ORDERED: TOPI25TA52 PO (13:01)
[2018-11-01] MEDS ORDERED: ATOR40TA59 PO (13:01)
[2018-11-01] MEDS ORDERED: CHOL4POW11 PO (13:15)
--- NOTE | 2018-11-01 14:15 | NUR ---
Discharge Note: HASEEB OLSON [address] Discharge instructions and discharge home medications reviewed with Patient and a copy given. All questions have been answered and understanding verbalized. All valuables returned to patient. The following instructions and handouts were given: high cholesterol, chest pain, and new medications Discontinued lines and drains: Peripheral IV intact. Patient discharged to Home or Self Care with Self via Ambulated
--- NOTE | 2018-11-01 14:16 | DS ---
DATE OF DISCHARGE: 11/01/2018 ADMIT DIAGNOSIS: Acute cerebrovascular accident. DISMISSAL DIAGNOSES: 1. False positive CT for vascular access for CVA negative MRI. 2. Choreiform movement of right arm. 3. Dyspnea on exertion. 4. Type 2 diabetes. 5. Hypercholesterolemia. 6. Hypertension. HISTORY OF PRESENT ILLNESS AND HOSPITAL COURSE: This patient is a 58-year-old male who has been having abnormal arm movements when he gets tired for the last several weeks. He also had episodes of shortness of breath, diaphoresis and chest pain with activity over the last several weeks. He had abnormal EKG in the office and was brought to the Emergency Room for evaluation. He was thought to have a CVA on initial CAT scan and was admitted for further evaluation by Neurology as well as Cardiology. He underwent MRI, which confirmed no acute CVA and no old CVA. The patient was back to baseline and due to risk factors, plans for outpatient stress testing was done. The patient was adjusted with his medications and discharged to home on the following medications: Aspirin 81 mg daily, Lipitor 40 mg daily. Questran 4 gram pack b.i.d., fenofibrate 134 mg daily, Topamax 25 mg b.i.d. for choreiform movement and headaches, allopurinol 100 mg at bedtime, amlodipine 5 mg daily, glimepiride 1 mg daily, lisinopril/HCTZ 20/12.5 daily, metformin 1000 b.i.d. INSTRUCTIONS: He will follow up in the office in 1 week for continued care and with Cardiology in 3-4 days for stress testing. MILO VILLALTA MD DR: JIMI/bradford JOB#: [id number] / [id number]
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
--- NOTE | 2018-11-01 18:44 | EEG ---
DATE OF SERVICE: 10/31/2018 EEG NUMBER: [id number] OBJECTIVE: This is a 58-year-old male patient with history of intermittent recurrent abnormal movements in the right upper extremity for about 3 weeks. EEG was requested to help rule out seizure. METHODS: Twenty electrodes were applied according to the international 10-20 electrode placement system. EKG monitoring, hyperventilation, intermittent photic stimulation, monopolar and bipolar montages were routinely utilized. The record was obtained on a digital system with video monitoring. FINDINGS: 1. Background: The patient was recorded in the awake, drowsy, and sleep states. The overall background amplitude was 10-30 microvolts. A posterior dominant rhythm of 8-10 Hz was observed. 2. Abnormalities: No specific epileptiform discharge or electrographic seizure was seen. No focal or diffuse slowing. 3. Activation: Hyperventilation was performed with fair efforts and normal response. Intermittent photic stimulation was performed with photic driving. No specific epileptiform discharge or electrographic seizure induced by hyperventilation or intermittent photic stimulation. IMPRESSION: This EEG is a normal study for the awake, drowsy, and sleep states. No focal, lateralizing, specific epileptiform discharge or electrographic seizure was seen. JAKE VASQUEZ MD DR: PEARL/bradford JOB#: [id number] / [id number] MAYO
[2018-11-05 08:05] LABS: CALCIUM PTH 9.8 mg/dL (8.7-10.2); CREATININE PTH 1.01 mg/dL (0.76-1.27); PHOSPHORUS PTH 3.2 mg/dL (2.5-4.5); PTH INTACT 29 pg/mL (15-65)
== END 2018-11-01 14:19 | disposition home or self-care (01) | DRG 57 ==
LOC: ER 17:30 → 2 SOUTH 19:00
PROVIDERS: ADMIT Family Medicine; ATTEND Family Medicine
PROC: 5A09357 Assistance with Respiratory Ventilation, Less than 24 Consecutive Hours, Continuous Positive Airway Pressure (ICD-10-PCS; principal; 2018-10-31)
DX: G25.9 Extrapyramidal and movement disorder, unspecified (principal); E78.00 Pure hypercholesterolemia, unspecified; M10.9 Gout, unspecified; I10 Essential (primary) hypertension; E78.5 Hyperlipidemia, unspecified; E66.9 Obesity, unspecified; G47.33 Obstructive sleep apnea (adult) (pediatric); K58.9 Irritable bowel syndrome, unspecified; M19.90 Unspecified osteoarthritis, unspecified site; F17.200 Nicotine dependence, unspecified, uncomplicated; E11.65 Type 2 diabetes mellitus with hyperglycemia; E78.1 Pure hyperglyceridemia; Z82.49 Family history of ischemic heart disease and other diseases of the circulatory system; Z88.5 Allergy status to narcotic agent; Z68.31 Body mass index [BMI] 31.0-31.9, adult; Z87.442 Personal history of urinary calculi; Z83.3 Family history of diabetes mellitus; Z80.8 Family history of malignant neoplasm of other organs or systems; Z86.73 Personal history of transient ischemic attack (TIA), and cerebral infarction without residual deficits
CPT/HCPCS: 36415; 70450; 70553; 71046; 80048; 80053; 80061; 80307; 81001; 82310; 82390; 82525; 82550; 82962; 83690; 83735; 83880; 83970; 84443; 84484; 85025; 85610; 87086; 93005; 93306; 94660; 95816; A9575; J1650; J1815; 99285-25

== ENCOUNTER → 2018-11-08 | Outpatient (CLI) | payer BC ==
[2018-11-01 11:28] VITALS: BP 132/75
[~2018-11-08] MED LIST changes: +AMLO5TAB10 PO; +ASPI-612 PO; +ATOR40TA59 PO; +CHOL4POW11 PO; +FENO134C PO; +REGADENOSON 0.4 MG/5 ML DISP.SYRIN. IV ONE; +TOPI25TA52 PO
--- NOTE | 2018-11-08 13:13 | RAD ---
MR#: [id number] Date of Study: 11/08/2018 Ordering Physician: TRICIA WALKER, Referring Physician: MARBELLA HAGEN Tech: BEKA Taylor, ARRT (R) (N) APPROVED REPORT Test Type: Pharmacological Stress Nurse/Tech: Sultana Stevens R.N. Test Indications: CP. sweating, SOB Cardiac History: Family history, Hypertension, Diabetes, former smoker, chews tobacco Medications: Zocor Medical History: See Electronic Medical Record Resting ECG: S Fernie with PAC's Resting Heart Rate: 53 bpm Resting Blood Pressure: 108/66mmHg Pretest Chest Pain: No chest pain Nurse/Tech Notes S1S2, lungs sound clear Consent: The procedure was explained to the patient in lay terms. Informed consent was witnessed. Amrit eout was entered into [employer] History and Stress Test performed by Sultana Stevens R.N. Pharm. Details Pharmacologic stress testing was performed using 0.4mg per 5ml of regadenoson given intravenously ove r 7-10 seconds. Stress Symptoms Dyspnea, Nausea, dry heaves POST EXERCISE Reason for Termination: Infusion complete Target HR: 139 Max HR: 100 bpm Max Blood Pressure: 129/72mmHg Blood Pressure response to exercise: Normal blood pressure response during stress. Chest Pain: No. Arrhythmia: No. ST Change: No. INTERPRETATION Stress EKG Conclusion: Baseline EKG showed sinus rhythm. No ischemic changes at peak stress. No arr hythmias. Imaging Protocol IMAGE PROTOCOL: Rest Tc-99m/stress Tc-99m 1 day Rest: Stress: Viability: Radiopharm.Tc99m [id number] Sestamibi Dose10.6mCi 33mCi Img Date 11/08/2018 11/08/2018 Inj-Img [id number]. 45min. Rest Admin Site:IV - Right ForearmAdministrator:RT Zhao (R)(N) Stress Admin Site: IV - Right ForearmAdministrator: RT Zhao (R)(N) STRESS DATA End Diast. Vol.103.0mlAv. Heart Rate52.0bpm End Syst. Vol.29.0mlCO Index BSA0.0L/min Myocardial Dgai354.0gEject. Ljusxhjd65.0% Stress Rates Pk. Fill Rate2.28EDV/secLVtime Pk. Fill 268.18msec Pk. Empty Rate3.13ESV/secLVtime Pk. Oynii888.92msec 1/3 Pk. Fill1.30EDV/sec Stress Scores Regional WT0.00Summed WT10.00 Regional WM0.00Summed WM1.00 Study quality was good. Left Ventricular size was Normal at Rest and Stress. Lung uptake was . Left Ventricular ejection fraction is 72%. The rest and stress images show normal perfusion, normal contraction and thickening. LV Perf. Quant 17 Seg. SSS0.00 17 Seg. SRS1.00 17 Seg. SDS0.00 Stress Defect Extent (% LAD)0.00Rest Defect Extent (% LAD)0.00Rev. Defect Extent (% LAD)0.00 Stress Defect Extent (% LCX) 5.00Rest Defect Extent (% LCX)11.30Rev. Defect Extent (% LCX)0.00 Stress Defect Extent (% RCA)0.00Rest Defect Extent (% RCA)0.00Rev. Defect Extent (% RCA)0.00 Stress Defect Extent (% LÓPEZ)0.90Rest Defect Extent (% LÓPEZ)2.00Rev. Defect Extent (% LÓPEZ)0.00 Conclusion 1. Regadenoson cardioisotope stress test did not show any evidence of ischemia or infarct. 2. Normal left ventricular systolic function with ejection fraction calculated at 72%. 3. Low risk for cardiac events. Signed by : Rayray Catherine, Electronically Approved : 11/08/2018 13:12:33
== END | disposition home or self-care (01) ==
LOC: NM 08:37
PROVIDERS: ATTEND Internal Medicine Cardiovascular Disease
DX: R06.02 Shortness of breath (principal); R07.9 Chest pain, unspecified; I10 Essential (primary) hypertension; E11.9 Type 2 diabetes mellitus without complications; Z87.891 Personal history of nicotine dependence
CPT/HCPCS: 78452; 93017; A9500; J2785

== ENCOUNTER 2019-05-24 09:58 | Emergency (ER) | payer BC ==
[~2019-05-24] VITALS: Ht 175.3 cm; Wt 104.3 kg
[~2019-05-24 09:58] MED LIST changes: -GLIM1TAB2 PO; +GLIM1TAB7 PO; +LISI1TAB19 PO; -LISI1TAB5 PO; -REGADENOSON 0.4 MG/5 ML DISP.SYRIN. IV ONE
[2019-05-24 10:05] VITALS: BP 158/83
[2019-05-24] MEDS ORDERED: KETOROLAC 15 MG/ML VIAL. IV STA (10:39)
[2019-05-24 10:44] LABS: BILIRUBIN,URINE NEGATIVE (NEG); CLARITY,URINE CLEAR; COLOR,URINE YELLOW; NITRITE,URINE NEGATIVE (NEG); PROTEIN,URINE NEGATIVE (NEG-TRACE)
[2019-05-24 11:00] LABS: BACTERIA,URINE 0 /HPF (0-FEW); RBC,URINE 0 /HPF (0-2); SQUAMOUS EPITHELIAL CELL,UR FEW /LPF
[2019-05-24] MEDS ORDERED: IV NORMAL SALINE 1000ML BAG 1,000 ML IV ONE (11:00)
[2019-05-24 11:04] LABS: BASO # 0.1 x10^3/uL (0.0-0.2); BASO % 0 % (0-3); EOS # 0.1 x10^3/uL (0.0-0.7); EOS % 1 % (0-3); HEMATOCRIT 40.4 % (39.0-53.0); HEMOGLOBIN 13.7 g/dL (13.0-17.5); LYMPH # 2.4 x10^3/uL (1.0-4.8); LYMPH % 19 % (24-48); MEAN CORPUSCULAR HEMOGLOBIN 30 pg (25-35); MEAN CORPUSCULAR HGB CONC 34 g/dL (31-37); MEAN CORPUSCULAR VOLUME 87 fL (79-100); MONO # 0.9 x10^3/uL (0.0-1.1); MONO % 7 % (0-9); NEUT # 9.4 x10^3/uL (1.8-7.7); NEUT % 73 % (31-73); PLATELET COUNT 231 x10^3/uL (140-400); RED BLOOD COUNT 4.63 x10^6/uL (4.30-5.70); WHITE BLOOD COUNT 12.9 x10^3/uL (4.0-11.0)
[2019-05-24] MEDS ORDERED: TAMS0.4C97 PO (11:05)
--- NOTE | 2019-05-24 11:06 | PHYS DOC ---
Past Medical History Past Medical History: Diabetes-Type II, High Cholesterol, Hypertension, Kidney Stone, Other Additional Past Medical Histor: GOUT (MILO ORR APRN) Past Surgical History: Appendectomy, Tonsillectomy, Other Additional Past Surgical Histo: left hip (MILO ORR APRN) Additional Information: chewing tobacco Alcohol Use: Rarely Drug Use: None (MILO ORR APRN) Adult General Chief Complaint Chief Complaint: FLANK PAIN HPI HPI Patient is a 58 year old male who presents with left flank pain that started yesterday around 9 AM and has been ongoing intermittently since that time. The patient states he got really bad last night. The patient has a history of kidney stones. He rates his pain currently is 8 out of 10 in severity and sharp. (MILO ORR APRN) Review of Systems Review of Systems Constitutional: Denies fever or chills [] Eyes: Denies change in visual acuity, redness, or eye pain [] HENT: Denies nasal congestion or sore throat [] Respiratory: Denies cough or shortness of breath [] Cardiovascular: No additional information not addressed in HPI [] GI: Reports flank pain, Denies nausea, vomiting, bloody stools or diarrhea [] : Reports urinary burning and pressure. Musculoskeletal: Reports lower back pain. Integument: Denies rash or skin lesions [] Neurologic: Denies headache, focal weakness or sensory changes [] Endocrine: Denies polyuria or polydipsia [] Complete systems were reviewed and found to be within normal limits, except as documented in this note. (MILO ORR APRN) Current Medications Current Medications Current Medications Medications (Trade) Dose Ordered Sig/Marvin Start Time Stop Time Status Last Admin Dose Admin Ketorolac Tromethamine (Toradol 15mg Vial) 10 mg 1X STAT 05/24/19 10:39 05/24/19 10:43 DC 05/24/19 11:03 10 MG Sodium Chloride 1,000 ml @ 1,000 mls/hr 1X ONCE 05/24/19 11:00 05/24/19 11:59 DC 05/24/19 11:02 1,000 MLS/HR (MILO WEINSTEIN DO) Allergies Allergies Allergies Coded Allergies Type Severity Reaction Last Updated Verified Opioids - Morphine Analogues Allergy Intermediate VOMITING 10/31/18 Yes (MILO WEINSTEIN DO) Physical Exam Physical Exam Constitutional: Well developed, well nourished, no acute distress, non-toxic appearance. [] HENT: Normocephalic, atraumatic, bilateral external ears normal, oropharynx moist, no oral exudates, nose normal. [] Eyes: PERRLA, EOMI, conjunctiva normal, no discharge. [] Neck: Normal range of motion, no tenderness, supple, no stridor. [] Cardiovascular:Heart rate regular rhythm, no murmur [] Lungs & Thorax: Bilateral breath sounds clear to auscultation [] Abdomen: Bowel sounds normal, soft, left flank tenderness, no masses, no pulsatile masses. [] Skin: Warm, dry, no erythema, no rash. [] Back: lower back left tenderness, no CVA tenderness. [] Neurologic: Alert and oriented X 3, normal motor function, normal sensory function, no focal deficits noted. [] Psychologic: Affect normal, judgement normal, mood normal. [] (MILO ORR APRN) Current Patient Data Vital Signs Vital Signs Date Time Temp Pulse Resp B/P (MAP) Pulse Ox O2 Delivery O2 Flow Rate FiO2 05/24/19 10:05 97.6 52 16 158/83 (108) 100 Room Air 97.6 (WEINSTEINMILO ELIZABETH DO) Lab Values Laboratory Tests Test 05/24/19 10:02 05/24/19 10:45 Urine Collection Type Unknown Urine Color Yellow Urine Clarity Clear Urine pH 5.0 Urine Specific [place] >=1.030 Urine Protein Negative mg/dL (NEG-TRACE) Urine Glucose (UA) 500 mg/dL (NEG) Urine Ketones (Stick) Negative mg/dL (NEG) Urine Blood Moderate (NEG) Urine Nitrite Negative (NEG) Urine Bilirubin Negative (NEG) Urine Urobilinogen Dipstick 1.0 mg/dL (0.2 mg/dL) Urine Leukocyte Esterase Negative (NEG) Urine RBC 0 /HPF (0-2) Urine WBC 1-4 /HPF (0-4) Urine Squamous Epithelial Cells Few /LPF Urine Bacteria 0 /HPF (0-FEW) White Blood Count 12.9 x10^3/uL (4.0-11.0) H Red Blood Count 4.63 x10^6/uL (4.30-5.70) Hemoglobin 13.7 g/dL (13.0-17.5) Hematocrit 40.4 % (39.0-53.0) Mean Corpuscular Volume 87 fL (79-100) Mean Corpuscular Hemoglobin 30 pg (25-35) Mean Corpuscular Hemoglobin Concent 34 g/dL (31-37) Red Cell Distribution Width 14.0 % (11.5-14.5) Platelet Count 231 x10^3/uL (140-400) Neutrophils (%) (Auto) 73 % (31-73) Lymphocytes (%) (Auto) 19 % (24-48) L Monocytes (%) (Auto) 7 % (0-9) Eosinophils (%) (Auto) 1 % (0-3) Basophils (%) (Auto) 0 % (0-3) Neutrophils # (Auto) 9.4 x10^3/uL (1.8-7.7) H Lymphocytes # (Auto) 2.4 x10^3/uL (1.0-4.8) Monocytes # (Auto) 0.9 x10^3/uL (0.0-1.1) Eosinophils # (Auto) 0.1 x10^3/uL (0.0-0.7) Basophils # (Auto) 0.1 x10^3/uL (0.0-0.2) Sodium Level 137 mmol/L (136-145) Potassium Level 4.1 mmol/L (3.5-5.1) Chloride Level 102 mmol/L (98-107) Carbon Dioxide Level 23 mmol/L (21-32) Anion Gap 12 (6-14) Blood Urea Nitrogen 27 mg/dL (8-26) H Creatinine 1.8 mg/dL (0.7-1.3) H Estimated GFR (Cockcroft-Gault) 39.2 BUN/Creatinine Ratio 15 (6-20) Glucose Level 195 mg/dL (70-99) H Calcium Level 9.5 mg/dL (8.5-10.1) Total Bilirubin 0.3 mg/dL (0.2-1.0) Aspartate Amino Transferase (AST) 14 U/L (15-37) L Alanine Aminotransferase (ALT) 25 U/L (16-63) Alkaline Phosphatase 53 U/L (46-116) Total Protein 6.5 g/dL (6.4-8.2) Albumin 3.9 g/dL (3.4-5.0) Albumin/Globulin Ratio 1.5 (1.0-1.7) Lipase 113 U/L (73-393) Laboratory Tests 05/24/19 10:45 Laboratory Tests 05/24/19 10:45 (MILO WEINSTEIN DO) EKG EKG [] (MILO ORR APRN) Radiology/Procedures Radiology/Procedures [][facility] [address] [place] [address] IMAGING REPORT Signed PATIENT: HASEEB OLSON ACCOUNT: [id number] : 1960 LOCATION: ER AGE: 58 SEX: M EXAM STATUS: REG ER ORD. PHYSICIAN: MILO ORR APRN REASON: L flank pain PROCEDURE: CT ABDOMEN PELVIS WO CONTRAST EXAM: CT ABDOMEN/PELVIS WITHOUT CONTRAST. HISTORY: Left flank pain. TECHNIQUE: Computed tomography of the abdomen and pelvis was performed without intravenous contrast. COMPARISON: 05/31/2018. FINDINGS: Lung windows through the visualized portions of the bases reveal mild atelectasis. Bone windows reveal no suspicious lesions. Small sclerotic foci within the right medial iliac bone are stable and likely benign. There is mild left hip osteoarthritis in the setting of a chronic healed fracture deformity of the posterior acetabulum. Small hypoattenuating hepatic lesions measure 12 mm or less. These are unchanged and most likely reflect small cysts or hemangiomas in the absence of known malignancy. The spleen, adrenal glands, pancreas and gallbladder are unremarkable without contrast. There are no pathologically enlarged lymph nodes. There is no evidence of appendicitis. There is no small bowel obstruction. A left distal ureteral calculus measures 3 mm. There is mild left pelviectasis and perinephric stranding. No additional renal or ureteral calculi are seen. There are no suspicious renal lesions without contrast. IMPRESSION: 1. 3 mm left distal ureteral calculus with mild proximal obstructive findings. *One or more of the following individualized dose reduction techniques were utilized for this examination: 1. Automated exposure control. 2. Adjustment of the mA and/or kV according to patient size. 3. Use of iterative reconstruction technique. Electronically signed by: Vee Fuller MD (05/24/2019 11:49 AM) [facility] DICTATED and SIGNED BY: MARIA GUADALUPE FULLER MD DATE: 05/24/19 1149 (MILO ORR APRN) Course & Med Decision Making Course & Med Decision Making Pertinent Labs and Imaging studies reviewed. (See chart for details) Discussed with patient the risks and benefits of CT to determine the size of stone. Patient elected to have CT. Patient does not want opiods. Will give Toradol. Will also get urine and labs. Urine shows moderate blood. Labs show a creatinine of 1.8 which is increased from 0.[address] IMPRESSION: 1. 3 mm left distal ureteral calculus with mild proximal obstructive findings. Discussed with patient and offered to transfer to a facility with urology. Patient elected to try to pass the stone at home and drink plenty of water. Will d/c home on Toradol, Zofran, and Flomax. Patient states that the Toradol we gave here helped pain. (MILO ORR APRN) Dragon Disclaimer Dragon Disclaimer This electronic medical record was generated, in whole or in part, using a voice recognition dictation system. (MILO ORR APRN) Departure Departure Impression: Primary Impression: Nephrolithiasis Additional Impression: JONATHAN (acute kidney injury) Disposition: HOME, SELF-CARE Condition: STABLE Referrals: MILO VILLALTA MD (PCP) Patient Instructions: Acute Kidney Injury, Diet for Kidney Stones Additional Instructions: Thank you for visiting [facility]. We appreciate you trusting us with your care. If any additional problems come up don't hesitate to return to visit us. Please follow up with your primary care provider so they can plan additional care if needed and know about the problem that you had. If symptoms worsen come back to the Emergency Department. Any concerning symptoms that start such as chest pain, shortness of air, weakness or numbness on one side of the body, running high fevers or any other concerning symptoms return to the ER. Please fill your medications at any pharmacy and follow the prescription instructions. Please make sure to drink plenty of water at home. Scripts Ondansetron (ONDANSETRON ODT) 4 Mg Tab.rapdis 1 TAB PO PRN Q6-8HRS PRN for NAUSEA, #16 TAB Prov: MILO ORR APRN 05/24/19 Ketorolac Tromethamine (KETOROLAC TROMETHAMINE) 10 Mg Tablet 1 TAB PO PRN Q6HRS for 2 Days, #8 TAB Prov: MILO ORR APRN 05/24/19 Tamsulosin Hcl (FLOMAX) 0.4 Mg Cap.er.24h 1 CAP PO DAILY, #30 CAP 0 Refills Prov: MILO ORR APRN 05/24/19 Attending Signature Attending Signature I have reviewed the PA/FORMING MILL OPERATOR's note and plan of care. I was available for consultation as needed during the patient's visit in the emergency department. I agree with the clinical impression, plan, and disposition. (MILO WEINSTEIN DO) Problem Qualifiers MILO ORR APRN May 24, 2019 11:06 MILO WEINSTEIN DO May 28, 2019 19:44
[2019-05-24 11:07] LABS: CALCIUM 9.5 mg/dL (8.5-10.1); CREATININE 1.8 mg/dL (0.7-1.3); GFR 39.2; POTASSIUM 4.1 mmol/L (3.5-5.1)
[2019-05-24 11:13] LABS: ALBUMIN 3.9 g/dL (3.4-5.0); ALBUMIN/GLOBULIN RATIO 1.5 (1.0-1.7); TOTAL BILIRUBIN 0.3 mg/dL (0.2-1.0); TOTAL PROTEIN 6.5 g/dL (6.4-8.2)
--- NOTE | 2019-05-24 11:52 | RAD ---
EXAM: CT ABDOMEN/PELVIS WITHOUT CONTRAST. HISTORY: Left flank pain. TECHNIQUE: Computed tomography of the abdomen and pelvis was performed without intravenous contrast. COMPARISON: 05/31/2018. FINDINGS: Lung windows through the visualized portions of the bases reveal mild atelectasis. Bone windows reveal no suspicious lesions. Small sclerotic foci within the right medial iliac bone are stable and likely benign. There is mild left hip osteoarthritis in the setting of a chronic healed fracture deformity of the posterior acetabulum. Small hypoattenuating hepatic lesions measure 12 mm or less. These are unchanged and most likely reflect small cysts or hemangiomas in the absence of known malignancy. The spleen, adrenal glands, pancreas and gallbladder are unremarkable without contrast. There are no pathologically enlarged lymph nodes. There is no evidence of appendicitis. There is no small bowel obstruction. A left distal ureteral calculus measures 3 mm. There is mild left pelviectasis and perinephric stranding. No additional renal or ureteral calculi are seen. There are no suspicious renal lesions without contrast. IMPRESSION: 1. 3 mm left distal ureteral calculus with mild proximal obstructive findings. *One or more of the following individualized dose reduction techniques were utilized for this examination: 1. Automated exposure control. 2. Adjustment of the mA and/or kV according to patient size. 3. Use of iterative reconstruction technique. Electronically signed by: Vee Fuller MD (05/24/2019 11:49 AM) [facility]
[2019-05-24] MEDS ORDERED: KETO10TA PO (12:15)
[2019-05-24] MEDS ORDERED: ONDA4TAB12 PO (12:15)
== END 2019-05-24 12:30 | disposition home or self-care (01) ==
LOC: ER 09:58
DX: N17.9 Acute kidney failure, unspecified (principal); N20.0 Calculus of kidney; Z87.442 Personal history of urinary calculi; E11.9 Type 2 diabetes mellitus without complications; E78.00 Pure hypercholesterolemia, unspecified; I10 Essential (primary) hypertension; Z90.89 Acquired absence of other organs; Z98.890 Other specified postprocedural states; Z88.6 Allergy status to analgesic agent
CPT/HCPCS: 36415; 74176; 80053; 81001; 83690; 85025; 96374; 99285; J1885; J7030